=== PATIENT | male | born 1960 | race Hispanic/Latino ===

== ENCOUNTER 2020-08-07 14:09 | Inpatient (IN) | payer OTHER ==
--- NOTE | 2020-08-07 18:06 | Event Note ---
ED Screening Note ED Screening Note: language line used for macedonian interpretation went to a clinic to get COVID test and they advised for him to be evaluated in the ED, did not get to have the test performed +cough no appetite +SOB +diarrhea has had symptoms for 5 days no vomiting PMHx none allergy: none non smoker This initial assessment/diagnostic orders/clinical plan/treatment(s) is/are subject to change based on patients health status, clinical progression and re- assessment by fellow clinical providers in the ED. Further treatment and workup at subsequent clinical providers discretion. Patient/guardian urged not to elope from the ED as their condition may be serious if not clinically assessed and managed. Initial orders include: labs, CXR
--- NOTE | 2020-08-07 18:36 | XRay Report ---
CHEST 2 VIEWS INDICATION / CLINICAL INFORMATION: cough, chest pain, SOB. COMPARISON: None available. FINDINGS: SUPPORT DEVICES: None. HEART / MEDIASTINUM: No significant abnormality. LUNGS / PLEURA: There are generalized bilateral airspace opacities. No significant pleural effusion. No pneumothorax. ADDITIONAL FINDINGS: No significant additional findings. IMPRESSION: Bilateral airspace opacities are most concerning for pneumonia in the setting of cough and shortness of breath. Pulmonary edema is also a consideration. Continued radiographic follow-up to resolution is recommended. Signer Name: Petar Gonzalez MD Signed: 08/07/2020 6:32 PM Workstation Name: [id number]
[2020-08-07 18:51] LABS: Basophils % (Auto) 0.2 % (0.0-1.8); Eosinophils # (Auto) 0.1 K/mm3 (0.0-0.4); Eosinophils % (Auto) 0.7 % (0.0-4.3); Hematocrit 50.1 % (35.5-45.6); Hemoglobin 16.6 gm/dl (11.8-15.2); Lymphocytes # (Auto) 1.4 K/mm3 (1.2-5.4); Lymphocytes % (Auto) 17.5 % (13.4-35.0); Mean Corpuscular HGB Conc 33 % (32-34); Mean Corpuscular Volume 96 fl (84-94); Monocytes # (Auto) 0.9 K/mm3 (0.0-0.8); Monocytes % (Auto) 11.8 % (0.0-7.3); Platelet Count 437 K/mm3 (140-440); Red Blood Count 5.22 M/mm3 (3.65-5.03); Red Cell Distribution Width 12.9 % (13.2-15.2)
[2020-08-07 19:29] LABS: Alanine Aminotransferase 241 units/L (7-56); Blood Urea Nitrogen 11 mg/dL (9-20); Calcium 9.1 mg/dL (8.4-10.2); Hemolysis Index 40
[2020-08-07 19:33] LABS: BUN/Creatinine Ratio 18
--- NOTE | 2020-08-07 22:03 | Emergency Department Report ---
ED Shortness of Breath HPI - General Chief Complaint: Chest Pain Stated Complaint: CHEST PAIN/LILA Time Seen by Provider: 08/07/20 18:03 Source: patient Mode of arrival: Ambulatory Limitations: Language Barrier - History of Present Illness Initial Comments: 59-year-old male presents emerged department complaining of a 5-day history of cough shortness of breath associated with chest pain which worsens on exertion and has scant mucus production. Initially seen in urgent care advised to come to emergency department for evaluation and treatment options at the responsibility for Covct. Also been expressing diarrhea and abdominal pressure pain he reports no hematuria or dysuria no hematemesis no hematochezia no rashes noted. -: Gradual Severity: mild Consistency: constant Worsens With: nothing - Related Data Allergies Allergy/AdvReac Type Severity Reaction Status Date / Time No Known Allergies Allergy Unverified 08/07/20 17:31 ED Review of Systems ROS: Stated complaint: CHEST PAIN/LILA Other details as noted in HPI ED Past Medical Hx - Past Medical History Previous Medical History?: No - Surgical History Past Surgical History?: No ED Physical Exam - General Limitations: Language Barrier General appearance: alert, in no apparent distress - Head Head exam: Present: atraumatic, normocephalic - Eye Eye exam: Present: normal appearance - ENT ENT exam: Present: normal exam, normal orophraynx, mucous membranes moist - Neck Neck exam: Present: normal inspection - Respiratory Respiratory exam: Present: normal lung sounds bilaterally, decreased breath sounds. Absent: respiratory distress - Cardiovascular Cardiovascular Exam: Present: regular rate, normal rhythm. Absent: systolic murmur, diastolic murmur, rubs, gallop - GI/Abdominal GI/Abdominal exam: Present: soft, normal bowel sounds - Rectal Rectal exam: Present: deferred - Extremities Exam Extremities exam: Present: normal inspection - Back Exam Back exam: Present: normal inspection - Neurological Exam Neurological exam: Present: alert, oriented X3 - Psychiatric Psychiatric exam: Present: normal affect, normal mood - Skin Skin exam: Present: warm, dry, intact, normal color. Absent: rash ED Course Vital Signs 08/07/20 17:46 Temperature 98.2 F Pulse Rate 66 Respiratory 18 Rate Blood Pressure 124/73 [Right] O2 Sat by Pulse 94 Oximetry ED Medical Decision Making - Lab Data Result diagrams: 08/07/20 18:28 08/07/20 18:28 - EKG Data EKG shows normal: sinus rhythm Rate: normal - Radiology Data Radiology results: report reviewed [facility] [address] [place] [address] XRay Report Signed Patient: LAURYN AQUINO MR#: [id number] : 1960 Acct:[id number] Age/Sex: 59 / M ADM Date: 08/07/20 Loc: ED Attending Dr: Ordering Physician: LEONARDO MORRIS Date of Service: 08/07/20 Procedure(s): XR chest routine 2V Accession Number(s): [id number] cc: LEONARDO MORRIS Fluoro Time In Minutes: CHEST 2 VIEWS INDICATION / CLINICAL INFORMATION: cough, chest pain, SOB. COMPARISON: None available. FINDINGS: SUPPORT DEVICES: None. HEART / MEDIASTINUM: No significant abnormality. LUNGS / PLEURA: There are generalized bilateral airspace opacities. No significant pleural effusion. No pneumothorax. ADDITIONAL FINDINGS: No significant additional findings. IMPRESSION: Bilateral airspace opacities are most concerning for pneumonia in the setting of cough and shortness of breath. Pulmonary edema is also a consideration. Continued radiographic follow-up to resolution is recommended. Signer Name: Petar Gonzalez MD Signed: 08/07/2020 6:32 PM Workstation Name: [id number] Transcribed By: FRANK Dictated By: Petar Gonzalez MD Electronically Authenticated By: Petar Gonzalez MD Signed Date/Time: 08/07/201831 DD/ 30 TD/TT: - Medical Decision Making 59-year-old male resents emerged department complaining of chest pain shortness of breath for the last 5 days which is been progressively worsening bleed have COVID-19. He was found to have bilateral pneumonia with likely evolving CHF and desaturation with ambulation This patient presents to the emergency department with fever and lower respiratory symptoms concerning for viral syndrome including flu and COVID-19. Patient has suspicion and is for COVID-19 infection. Differential diagnosis includes other viral causes of lower respiratory symptoms, pneumonia, asthma, bronchitis. Patient is well-appearing with acceptable vitals, lacks comorbidities admission and a reassuring physical examination and is safe to be discharged home nasal swab for COVID testing is recommended. Provide strict return precautions and instructions on self isolation/quarantine and anticipatory guidance. Critical care attestation.: If time is entered above; I have spent that time in minutes in the direct care of this critically ill patient, excluding procedure time. ED Disposition Clinical Impression: Pneumonia, Suspected 2019 novel coronavirus infection Disposition: OP ADMIT IP TO THIS HOSP Is pt being admited?: Yes Does the pt Need Aspirin: No Condition: Stable Instructions: Bacterial Pneumonia (ED) Referrals: PRIMARY CARE, [Primary Care Provider] - 3-5 Days
[2020-08-07] MEDS ORDERED: methylPREDNISolone Sod Suc 500 MG in SODIUM CHLORIDE 0.9% 100 ML IV ONE (22:06)
[2020-08-07] MEDS ORDERED: AZITHROMYCIN 500 MG in SODIUM CHLORIDE 0.9% 250ML 250 ML IV ONE (22:06)
[2020-08-07] MEDS ORDERED: cefTRIAXone/NS 1 GM/50 ML 1 GM/50 ML BAG IV ONE ×2 (22:06→23:32)
[2020-08-07] MEDS ORDERED: dexAMETHasone 4 MG/ML VIAL IV ONE (22:15)
[2020-08-07] MEDS ORDERED: MAGNESIUM HYDROXIDE (MOM) ORAL LIQD UDC PO PRN (22:29)
[2020-08-07] MEDS ORDERED: ONDANSETRON 4 MG/2 ML INJ IV PRN (22:29)
[2020-08-07] MEDS ORDERED: ACETAMINOPHEN 325 MG TAB PO PRN (22:29)
--- NOTE | 2020-08-07 22:41 | History and Physical Report ---
History of Present Illness Date of examination: 08/07/20 Date of admission: 08/07/2020 Chief complaint: Cough Shorness of Breath History of present illness: Patient is a 59-year-old male with no significant past medical history presenting to the emergency room today complaining of shortness of breath which has been ongoing for about 5 days. He has also had some cough productive of some scanty whitish sputum. He has had some associated mild chest discomfort when he coughs. Patient denies any fever or chills, no nausea or vomiting but has had a bout of diarrhea. He denies any hematuria or dysuria and denies any bright red blood per rectum. Patient denies any sick contacts and no recent travel. Denies any contact with anyone with COVID-19. Work-up in the emergency room reveals multifocal infiltrates in both lung haynes. Labs reveals elevated liver enzymes. Patient commenced on empiric IV antibiotics for pneumonia with possible Covid. Past History Past Medical History: No medical history Past Surgical History: No surgical history Family history: no significant family history Medications and Allergies Allergies Allergy/AdvReac Type Severity Reaction Status Date / Time No Known Allergies Allergy Unverified 08/07/20 17:31 Active Meds: Active Medications Acetaminophen (Tylenol) 650 mg PO Q4H PRN PRN Reason: Pain MILD(1-3)/Fever >100.5/AVILES Enoxaparin Sodium (Enoxaparin) 40 mg SUB-Q QDAY@2200 ANNALISE; Protocol Azithromycin 500 mg/ Sodium (Chloride) 250 mls @ 250 mls/hr IV ONCE ONE; Protocol Stop: 08/07/20 23:05 Ceftriaxone Sodium (Rocephin/Ns 2 Gm/100 Ml) 2 gm in 100 mls @ 200 mls/hr IV Q24HR ANNALISE; Protocol Azithromycin 500 mg/ Sodium (Chloride) 250 mls @ 250 mls/hr IV Q24HR ANNALISE; Protocol Magnesium Hydroxide (Milk Of Magnesia) 30 ml PO Q4H PRN PRN Reason: Constipation Ondansetron HCl (Zofran) 4 mg IV Q8H PRN PRN Reason: Nausea And Vomiting Sodium Chloride (Sodium Chloride Flush Syringe 10 Ml) 10 ml IV BID ANNALISE Sodium Chloride (Sodium Chloride Flush Syringe 10 Ml) 10 ml IV PRN PRN PRN Reason: LINE FLUSH Review of Systems Constitutional: no fever, no chills Ears, nose, mouth and throat: no nasal congestion, no sore throat Cardiovascular: chest pain, no palpitations Respiratory: cough, cough with sputum, shortness of breath, no wheezing Gastrointestinal: no abdominal pain, no nausea, no vomiting, no diarrhea Genitourinary Male: no dysuria, no hematuria, no flank pain Musculoskeletal: no neck pain, no low back pain Integumentary: no rash, no pruritis Neurological: no confusion Psychiatric: no anxiety, no depression Exam - Constitutional Vitals: Temp Pulse Resp BP Pulse Ox 98.2 F 66 18 124/73 94 08/07/20 17:46 08/07/20 17:46 08/07/20 17:46 08/07/20 17:46 08/07/20 17:46 General appearance: Present: no acute distress, well-nourished - EENT Eyes: Present: PERRL, EOM intact. Absent: scleral icterus ENT: hearing intact, clear oral mucosa, dentition normal - Neck Neck: Present: supple, normal ROM - Respiratory Respiratory effort: normal Respiratory: bilateral: rales - Cardiovascular Rhythm: regular Heart Sounds: Present: S1 & S2. Absent: gallop, systolic murmur, diastolic murmur, rub - Extremities Extremities: no ischemia, pulses intact, pulses symmetrical, No edema, Full ROM Peripheral Pulses: within normal limits - Abdominal General gastrointestinal: Present: soft, non-tender, non-distended, normal bowel sounds. Absent: mass - Integumentary Integumentary: Present: clear, warm, dry - Musculoskeletal Musculoskeletal: strength equal bilaterally - Psychiatric Psychiatric: appropriate mood/affect, intact judgment & insight, memory intact, cooperative - Neurologic Neurologic: CNII-XII intact, no focal deficits, moves all extremities Results - Labs CBC & Chem 7: 08/08/20 04:34 08/07/20 22:16 Labs: Abnormal lab results 08/07/20 08/07/20 Range/Units 18:28 18:28 RBC 5.22 H (3.65-5.03) M/mm3 Hgb 16.6 H (11.8-15.2) gm/dl Hct 50.1 H (35.5-45.6) % MCV 96 H (84-94) fl RDW 12.9 L (13.2-15.2) % [place] % (Auto) 11.8 H (0.0-7.3) % [place] # (Auto) 0.9 H (0.0-0.8) K/mm3 Sodium 135 L (137-145) mmol/L Carbon Dioxide 20 L (22-30) mmol/L Creatinine 0.6 L (0.8-1.3) mg/dL Glucose 133 H (75-100) mg/dL AST 147 H (5-40) units/L ALT 241 H (7-56) units/L Albumin 3.0 L (3.9-5) g/dL Assessment and Plan - Patient Problems (1) Pneumonia Current Visit: Yes Status: Acute Plan to address problem: Patient started on empiric IV antibiotics. Will await culture results. (2) Suspected 2019 novel coronavirus infection Current Visit: Yes Status: Acute Plan to address problem: Patient placed on isolation precautions. Will await COVID-19 testing. Consult placed to infectious disease for evaluation. (3) Elevated liver enzymes Current Visit: Yes Status: Acute Plan to address problem: Etiology unclear. Will check hepatitis profile. Will place consult to [facility] stroenterology for evaluation. (4) DVT prophylaxis Current Visit: Yes Status: Acute Plan to address problem: Patient placed on subcutaneous Lovenox. (5) Full code status Current Visit: Yes Status: Acute
[2020-08-07] MEDS ORDERED: dexAMETHasone 4 MG/ML VIAL ONE (23:33)
[2020-08-07 23:53] LABS: Hepatitis B Surface Antigen Non-Reactive (Negative); Hepatitis C Virus Antibody Non-Reactive (NonReactive)
[2020-08-08 01:30] LABS: C-Reactive Protein 7.9 mg/dL (0.00-1.30)
[2020-08-08 05:28] LABS: Basophils % (Auto) 0.2 % (0.0-1.8); Eosinophils % (Auto) 0.1 % (0.0-4.3); Hematocrit 45.7 % (35.5-45.6); Hemoglobin 15.7 gm/dl (11.8-15.2); Lymphocytes # (Auto) 0.7 K/mm3 (1.2-5.4); Mean Corpuscular HGB Conc 34 % (32-34); Mean Corpuscular Volume 94 fl (84-94); Monocytes # (Auto) 0.4 K/mm3 (0.0-0.8); Monocytes % (Auto) 6.9 % (0.0-7.3); Platelet Count 442 K/mm3 (140-440); Red Blood Count 4.88 M/mm3 (3.65-5.03); Red Cell Distribution Width 12.6 % (13.2-15.2)
[2020-08-08 06:10] LABS: Bilirubin,Direct 0.2 mg/dL (0-0.2)
[2020-08-08 06:11] LABS: BUN/Creatinine Ratio 15; Blood Urea Nitrogen 12 mg/dL (9-20); Calcium 8.9 mg/dL (8.4-10.2); Hemolysis Index 4
[2020-08-08 06:16] LABS: INR 1.09 (0.87-1.13)
[2020-08-08] MEDS ORDERED: AZITHROMYCIN 500 MG in SODIUM CHLORIDE 0.9% 250ML 250 ML IV SCH (10:00)
--- NOTE | 2020-08-08 12:28 | Consultation ---
History of Present Illness - Reason for Consult Consult date: 08/08/20 - History of Present Illness 59-year-old male no past medical history admitted to the hospital complaining of shortness of breath he complains of associated cough he notes began approximately 5 days prior to admission and has become worse since then. Is a mild chest COVID-19 denies any swelling diarrhea. Does any COVID-19 contacts. Covid testing pending. Afebrile with a white count of 5.4. Elevated inflammatory markers. Elevated liver enzymes. Covid testing pending no cultures were reviewed. Currently receiving ceftriaxone and azithromycin. Imaging personally reviewed: Chest x-ray: Bilateral airspace opacities. Review of Systems: Bold if positive, otherwise negative General: fevers, chills, rigors HEENT: visual disturbance, diplopia, eye pain Respiratory: cough, sputum, hemoptysis, shortness of breath Cardiovascular: chest pain, syncope Gastrointestinal: nausea, vomiting, diarrhea, abdominal pain Genitourinary: dysuria, hematuria, flank pain Musculoskeletal: neck pain, back pain, joint pain, edema Neurologic: headaches, seizures Hematologic: easy bruising or bleeding Endocrine: night sweats, acute weight loss Skin: rash, jaundice, redness Psychiatric: suicidal, homicidal ideation Past History Past Medical History: No medical history Past Surgical History: No surgical history Family history: no significant family history Medications and Allergies Allergies Allergy/AdvReac Type Severity Reaction Status Date / Time No Known Allergies Allergy Unverified 08/07/20 17:31 Active Meds: Active Medications Acetaminophen (Tylenol) 650 mg PO Q4H PRN PRN Reason: Pain MILD(1-3)/Fever >100.5/AVILES Azithromycin (Zithromax) 500 mg PO QHS [facility] Stop: 08/11/20 22:01 Enoxaparin Sodium (Enoxaparin) 40 mg SUB-Q QDAY@2200 ANNALISE; Protocol Ceftriaxone Sodium (Rocephin/Ns 2 Gm/100 Ml) 2 gm in 100 mls @ 200 mls/hr IV QHS [facility]; Protocol Magnesium Hydroxide (Milk Of Magnesia) 30 ml PO Q4H PRN PRN Reason: Constipation Ondansetron HCl (Zofran) 4 mg IV Q8H PRN PRN Reason: Nausea And Vomiting Sodium Chloride (Sodium Chloride Flush Syringe 10 Ml) 10 ml IV BID ANNALISE Last Admin: 08/08/20 12:04 Dose: 10 ml Documented by: Sodium Chloride (Sodium Chloride Flush Syringe 10 Ml) 10 ml IV PRN PRN PRN Reason: LINE FLUSH Physical Examination - Physical Exam Narrative exam: Physical exam deferred due to PPE conservation strategy. Please refer to primary team's note. - Constitutional Vitals: Vital Signs Temp Pulse Resp BP Pulse Ox 97.5 F L 69 28 H 116/65 96 08/08/20 05:00 08/08/20 05:00 08/08/20 05:00 08/08/20 05:00 08/08/20 05:00 Temperature -Last 24 Hours Temperature 97.5 F Temperature 98.4 F Temperature 98.2 F Results - Labs CBC & Chem 7: 08/08/20 04:34 08/08/20 04:34 Labs: Abnormal lab results 08/07/20 08/07/20 08/07/20 Range/Units 18:28 18:28 22:16 RBC 5.22 H (3.65-5.03) M/mm3 Hgb 16.6 H (11.8-15.2) gm/dl Hct 50.1 H (35.5-45.6) % MCV 96 H (84-94) fl RDW 12.9 L (13.2-15.2) % Plt Count (140-440) K/mm3 Lymph % (Auto) (13.4-35.0) % [place] % (Auto) 11.8 H (0.0-7.3) % Lymph # (Auto) (1.2-5.4) K/mm3 [place] # (Auto) 0.9 H (0.0-0.8) K/mm3 Seg Neutrophils % (40.0-70.0) % D-Dimer 2651.46 H (0-234) ng/mlDDU Sodium 135 L (137-145) mmol/L Carbon Dioxide 20 L (22-30) mmol/L Creatinine 0.6 L (0.8-1.3) mg/dL Glucose 133 H (75-100) mg/dL Ferritin (30.0-300.0) ng/mL AST 147 H (5-40) units/L ALT 241 H (7-56) units/L Lactate Dehydrogenase (91-180) units/L C-Reactive Protein (0.00-1.30) mg/dL Albumin 3.0 L (3.9-5) g/dL 08/07/20 08/07/20 08/08/20 Range/Units 22:16 22:16 04:34 RBC (3.65-5.03) M/mm3 Hgb 15.7 H (11.8-15.2) gm/dl Hct 45.7 H (35.5-45.6) % MCV (84-94) fl RDW 12.6 L (13.2-15.2) % Plt Count 442 H (140-440) K/mm3 Lymph % (Auto) 13.0 L (13.4-35.0) % [place] % (Auto) (0.0-7.3) % Lymph # (Auto) 0.7 L (1.2-5.4) K/mm3 [place] # (Auto) (0.0-0.8) K/mm3 Seg Neutrophils % 79.8 H (40.0-70.0) % D-Dimer (0-234) ng/mlDDU Sodium (137-145) mmol/L Carbon Dioxide (22-30) mmol/L Creatinine (0.8-1.3) mg/dL Glucose 134 H (75-100) mg/dL Ferritin 820.0 H (30.0-300.0) ng/mL AST (5-40) units/L ALT (7-56) units/L Lactate Dehydrogenase 440 H (91-180) units/L C-Reactive Protein 7.90 H (0.00-1.30) mg/dL Albumin (3.9-5) g/dL 08/08/20 08/08/20 Range/Units 04:34 04:34 RBC (3.65-5.03) M/mm3 Hgb (11.8-15.2) gm/dl Hct (35.5-45.6) % MCV (84-94) fl RDW (13.2-15.2) % Plt Count (140-440) K/mm3 Lymph % (Auto) (13.4-35.0) % [place] % (Auto) (0.0-7.3) % Lymph # (Auto) (1.2-5.4) K/mm3 [place] # (Auto) (0.0-0.8) K/mm3 Seg Neutrophils % (40.0-70.0) % D-Dimer (0-234) ng/mlDDU Sodium 136 L (137-145) mmol/L Carbon Dioxide (22-30) mmol/L Creatinine (0.8-1.3) mg/dL Glucose 161 H (75-100) mg/dL Ferritin (30.0-300.0) ng/mL AST 120 H (5-40) units/L ALT 209 H (7-56) units/L Lactate Dehydrogenase (91-180) units/L C-Reactive Protein (0.00-1.30) mg/dL Albumin 3.0 L (3.9-5) g/dL Assessment and Plan Cultures: None A/P: 59-year-old man no known past medical history admitted with pneumonia, concern for COVID-19 #COVID-19 PUI: Obtain and follow-up testing. Chest x-ray with diffuse bilateral lateral traits #Elevated liver enzymes: Likely secondary to COVID-19, pending confirmation testing. #Bilateral pneumonia Recs: -Continue ceftriaxone 2 gm IV qday and azithromycin 500 mg PO qday, if procalcitonin <0.25 ng/mL will stop antibiotics -We will start remdesivir if hypoxic and COVID-19 positive -Follow liver enzymes -Further recommendations following Covid test results. Thank you for the consult, we will continue to follow. MD Iliana Matos [facility] ([facility] O: [phone] F: [phone]
--- NOTE | 2020-08-08 14:08 | Progress Note ---
Assessment and Plan --Bilateral pneumonia Patient started on empiric IV antibiotics. Will await culture results. -- Suspected 2019 novel coronavirus infection Patient placed on isolation precautions. Will await COVID-19 testing. Consult placed to infectious disease for evaluation. -- Elevated liver enzymes Etiology unclear. Will check hepatitis profile. Will place consult to gastroenterology for evaluation. -- DVT prophylaxis Patient placed on subcutaneous Lovenox. -- Full code status 08/08: Follow inflammatory markers, continue IV antibiotics. Pending COVID-19 tests, if positive will start remdesivir. Chest x-ray suggestive of Bilateral airspace opacities are most concerning for pneumonia Subjective Date of service: 08/08/20 Interval history: Patient seen and examined. Medical records and medication list reviewed. No acute event overnight noted by the RN. Patient denies any chest pain or difficulty breathing. Patient is tolerating diet. Discussed plan of care at bedside with patient. Objective - Exam Narrative Exam: GENERAL: well-developed and well-nourished male lying on bed appeared to be in no discomfort. HEENT: Normocephalic. Atraumatic. No conjunctival congestion or icterus. Patient has moist mucous membranes. NECK: Supple. Trachea midline. CHEST/LUNGS: Coarse breath sound auscultated bilaterally, breathing nonlabored. HEART/CARDIOVASCULAR: Regular in rate and rhythm. S1 and S2 positive. ABDOMEN: Abdomen is soft, nontender. Patient has normal bowel sounds. SKIN: There is no rash. Warm and dry. NEURO: No focal motor deficit. Follows command. MUSCULOSKELETAL: No joint effusion or tenderness. EXTRIMITY: No edema, no cyanosis or clubbing. PSYCH: Cooperative. - Constitutional Vitals: Vital Signs - 12hr 08/08/20 08/08/20 08/08/20 04:05 05:00 11:28 Temperature 98.4 F 97.5 F L 98.6 F Pulse Rate 62 69 74 Respiratory 16 28 H 18 Rate Blood Pressure 116/65 125/74 Blood Pressure 118/70 [Right] O2 Sat by Pulse 99 96 93 Oximetry - Labs CBC & Chem 7: 08/08/20 04:34 08/08/20 04:34 Labs: Abnormal lab results 08/07/20 08/07/20 08/07/20 Range/Units 18:28 18:28 22:16 RBC 5.22 H (3.65-5.03) M/mm3 Hgb 16.6 H (11.8-15.2) gm/dl Hct 50.1 H (35.5-45.6) % MCV 96 H (84-94) fl RDW 12.9 L (13.2-15.2) % Plt Count (140-440) K/mm3 Lymph % (Auto) (13.4-35.0) % [place] % (Auto) 11.8 H (0.0-7.3) % Lymph # (Auto) (1.2-5.4) K/mm3 [place] # (Auto) 0.9 H (0.0-0.8) K/mm3 Seg Neutrophils % (40.0-70.0) % D-Dimer 2651.46 H (0-234) ng/mlDDU Sodium 135 L (137-145) mmol/L Carbon Dioxide 20 L (22-30) mmol/L Creatinine 0.6 L (0.8-1.3) mg/dL Glucose 133 H (75-100) mg/dL Ferritin (30.0-300.0) ng/mL AST 147 H (5-40) units/L ALT 241 H (7-56) units/L Lactate Dehydrogenase (91-180) units/L C-Reactive Protein (0.00-1.30) mg/dL Albumin 3.0 L (3.9-5) g/dL 08/07/20 08/07/20 08/08/20 Range/Units 22:16 22:16 04:34 RBC (3.65-5.03) M/mm3 Hgb 15.7 H (11.8-15.2) gm/dl Hct 45.7 H (35.5-45.6) % MCV (84-94) fl RDW 12.6 L (13.2-15.2) % Plt Count 442 H (140-440) K/mm3 Lymph % (Auto) 13.0 L (13.4-35.0) % [place] % (Auto) (0.0-7.3) % Lymph # (Auto) 0.7 L (1.2-5.4) K/mm3 [place] # (Auto) (0.0-0.8) K/mm3 Seg Neutrophils % 79.8 H (40.0-70.0) % D-Dimer (0-234) ng/mlDDU Sodium (137-145) mmol/L Carbon Dioxide (22-30) mmol/L Creatinine (0.8-1.3) mg/dL Glucose 134 H (75-100) mg/dL Ferritin 820.0 H (30.0-300.0) ng/mL AST (5-40) units/L ALT (7-56) units/L Lactate Dehydrogenase 440 H (91-180) units/L C-Reactive Protein 7.90 H (0.00-1.30) mg/dL Albumin (3.9-5) g/dL 08/08/20 08/08/20 Range/Units 04:34 04:34 RBC (3.65-5.03) M/mm3 Hgb (11.8-15.2) gm/dl Hct (35.5-45.6) % MCV (84-94) fl RDW (13.2-15.2) % Plt Count (140-440) K/mm3 Lymph % (Auto) (13.4-35.0) % [place] % (Auto) (0.0-7.3) % Lymph # (Auto) (1.2-5.4) K/mm3 [place] # (Auto) (0.0-0.8) K/mm3 Seg Neutrophils % (40.0-70.0) % D-Dimer (0-234) ng/mlDDU Sodium 136 L (137-145) mmol/L Carbon Dioxide (22-30) mmol/L Creatinine (0.8-1.3) mg/dL Glucose 161 H (75-100) mg/dL Ferritin (30.0-300.0) ng/mL AST 120 H (5-40) units/L ALT 209 H (7-56) units/L Lactate Dehydrogenase (91-180) units/L C-Reactive Protein (0.00-1.30) mg/dL Albumin 3.0 L (3.9-5) g/dL
[2020-08-08] MEDS ORDERED: REMDESIVIR 100 MG VIAL IV ONE (18:00)
[2020-08-08] MEDS ORDERED: REMDESIVIR 200 MG in SODIUM CHLORIDE 0.9% 250ML 250 ML IV ONE (18:00)
[2020-08-08] MEDS: SODIUM CHLORIDE 0.9% 50 ML IV SCH (19:00)
[2020-08-08] MEDS: ENOXAPARIN 40 MG/0.4 ML INJ SUB-Q SCH (21:26)
[2020-08-08] MEDS ORDERED: cefTRIAXone/NS 2 GM/100 ML 2 GM/100 ML BAG IV SCH (22:00)
[2020-08-08] MEDS ORDERED: AZITHROMYCIN 250 MG TAB PO SCH (22:00)
[2020-08-09] MEDS: DEXAMETHASONE 2 MG TAB PO SCH (11:45)
--- NOTE | 2020-08-09 13:37 | Gastroenterology Consultation ---
History of Present Illness - Reason for Consult Consult date: 08/09/20 elevated liver enzymes Requesting physician: ASCENCION JETER - History of Present Illness The patient is a 59 yo male who presented with few days of progressive sob and cough. Patient diagnosed with COVID-19; found to have elevated liver enzymes on admission. no known h/o liver disease, denies abd pain. viral hep serologies negative. Past History Past Medical History: No medical history Past Surgical History: No surgical history Family history: no significant family history Medications and Allergies Allergies Allergy/AdvReac Type Severity Reaction Status Date / Time No Known Allergies Allergy Unverified 08/07/20 17:31 Active Meds: Active Medications Acetaminophen (Tylenol) 650 mg PO Q4H PRN PRN Reason: Pain MILD(1-3)/Fever >100.5/AVILES Dexamethasone (Decadron) 6 mg PO Q24HR [facility] Last Admin: 08/09/20 11:45 Dose: 6 mg Documented by: Enoxaparin Sodium (Enoxaparin) 40 mg SUB-Q QDAY@2200 ANNALISE; Protocol Last Admin: 08/08/20 21:26 Dose: 40 mg Documented by: REMDESIVIR 100 mg/ Sodium (Chloride) 250 mls @ 500 mls/hr IV Q24HR@2100 ANNALISE Stop: 08/12/20 21:29 Sodium Chloride (Nacl 0.9%) 50 mls @ 100 mls/hr IV Q24H [facility] Last Admin: 08/08/20 19:00 Dose: 100 mls/hr Documented by: Magnesium Hydroxide (Milk Of Magnesia) 30 ml PO Q4H PRN PRN Reason: Constipation Ondansetron HCl (Zofran) 4 mg IV Q8H PRN PRN Reason: Nausea And Vomiting Sodium Chloride (Sodium Chloride Flush Syringe 10 Ml) 10 ml IV BID [facility] Last Admin: 08/09/20 11:46 Dose: 10 ml Documented by: Sodium Chloride (Sodium Chloride Flush Syringe 10 Ml) 10 ml IV PRN PRN PRN Reason: LINE FLUSH Reviewed/updated patient's home and current medications Review of Systems - Review of Systems All systems: negative (per HPI) Exam - Constitutional Vital Signs: Temp Pulse Resp BP Pulse Ox 98.5 F 70 20 130/84 97 08/09/20 04:05 08/09/20 04:05 08/09/20 04:05 08/09/20 04:05 08/09/20 04:05 General appearance: no acute distress - EENT ENT: hearing intact - Respiratory Respiratory effort: normal Respiratory: bilateral: CTA - Cardiovascular Rhythm: regular Heart Sounds: Present: S1 & S2 - Gastrointestinal General gastrointestinal: Present: soft, non-tender, non-distended - Neurologic Neurological: alert and oriented x3 - Psychiatric Psychiatric: appropriate mood/affect - Labs CBC & Chem 7: 08/08/20 04:34 08/08/20 04:34 Lab Results: Laboratory Results - last 24 hr 08/08/20 Unknown Coronavirus (PCR) Positive A Assessment and Plan Abnormal liver enzymes - hepatocellular elevation, improved on repeat labs. unlikely with obstructive process given pattern of elevation. suspect due to COVID. would trend labs/monitor from gi stand point. if labs increase, obtain RUQ US, otherwise follow-up in GI clinic in 3-4 weeks for repeat labs and further work-up as needed if remains elevated. will sign off, please call as needed.
--- NOTE | 2020-08-09 16:41 | Progress Note ---
Assessment and Plan Cultures: None A/P: 59-year-old man no known past medical history admitted with pneumonia, concern for COVID-19 #COVID-19 pneumonia #Elevated liver enzymes: Likely secondary to COVID-19 #Bilateral pneumonia Recs: -Stopped antibiotics due to normal procalcitonin -Hold on remdesivir for now as patient does not appear to be hypoxic. Started requiring supplemental oxygen. -Follow liver enzymes Thank you for the consult, we will continue to follow. Michael Lares MD [facility], [place] ([facility] O: [phone] F: [phone] Subjective Date of service: 08/09/20 Interval history: Afebrile, normal white count. Covid positive. Objective - Exam Narrative Exam: Physical exam deferred due to PPE conservation strategy. Please refer to primary team's note. - Constitutional Vitals: Vital Signs Temp Pulse Resp BP Pulse Ox 97.7 F 71 22 117/76 95 08/09/20 11:54 08/09/20 11:54 08/09/20 11:54 08/09/20 11:54 08/09/20 11:54 Temperature -Last 24 Hours Temperature 97.7 F Temperature 98.5 F Temperature 98.3 F - Labs CBC & Chem 7: 08/08/20 04:34 08/08/20 04:34
--- NOTE | 2020-08-09 19:16 | Progress Note ---
Assessment and Plan --Bilateral pneumonia We will stop IV antibiotics. Patient is positive for Covid Will start on remdesivir IV -- novel coronavirus 2019 infection Patient placed on isolation precautions. +ve COVID-19 testing. Consult placed to infectious disease for evaluation. -- Elevated liver enzymes Etiology unclear. Negative hepatitis panel Likely due to COVID-19 infection -- DVT prophylaxis Patient placed on subcutaneous Lovenox. -- Full code status 08/08: Follow inflammatory markers, continue IV antibiotics. Pending COVID-19 tests, if positive will start remdesivir. Chest x-ray suggestive of Bilateral airspace opacities are most concerning for pneumonia 08/09: Patient is positive for COVID-19, will start on dexamethasone and remdesivir for now. Will follow ID recommendation. Subjective Date of service: 08/09/20 Interval history: Patient seen and examined. Medical records and medication list reviewed. No acute event overnight noted by the RN. Patient denies any chest pain or difficulty breathing. Patient is tolerating diet. Discussed plan of care at bedside with patient. Objective - Exam Narrative Exam: GENERAL: well-developed and well-nourished male lying on bed appeared to be in no discomfort. HEENT: Normocephalic. Atraumatic. No conjunctival congestion or icterus. Patient has moist mucous membranes. NECK: Supple. Trachea midline. CHEST/LUNGS: Coarse breath sound auscultated bilaterally, breathing nonlabored. HEART/CARDIOVASCULAR: Regular in rate and rhythm. S1 and S2 positive. ABDOMEN: Abdomen is soft, nontender. Patient has normal bowel sounds. SKIN: There is no rash. Warm and dry. NEURO: No focal motor deficit. Follows command. MUSCULOSKELETAL: No joint effusion or tenderness. EXTRIMITY: No edema, no cyanosis or clubbing. PSYCH: Cooperative. - Constitutional Vitals: Vital Signs - 12hr 08/09/20 11:54 Temperature 97.7 F Pulse Rate 71 Respiratory 22 Rate Blood Pressure 117/76 O2 Sat by Pulse 95 Oximetry - Labs CBC & Chem 7: 08/08/20 04:34 08/08/20 04:34
[2020-08-09] MEDS ORDERED: REMDESIVIR 100 MG in SODIUM CHLORIDE 0.9% 250ML 250 ML IV SCH (21:00)
[2020-08-09] MEDS: ENOXAPARIN 40 MG/0.4 ML INJ SUB-Q SCH (21:53)
[2020-08-09] MEDS: SODIUM CHLORIDE 0.9% 50 ML IV SCH (21:54)
[2020-08-10 07:11] LABS: Alanine Aminotransferase 169 units/L (7-56)
[2020-08-10 08:04] LABS: Bilirubin,Direct < 0.2 mg/dL (0-0.2)
[2020-08-10] MEDS: DEXAMETHASONE 2 MG TAB PO SCH (10:50)
[2020-08-10 11:34] LABS: C-Reactive Protein 1.2 mg/dL (0.00-1.30)
--- NOTE | 2020-08-10 13:09 | Progress Note ---
Assessment and Plan Cultures: None A/P: 59-year-old man no known past medical history admitted with pneumonia, concern for COVID-19 #COVID-19 pneumonia #Elevated liver enzymes: Likely secondary to COVID-19. Improving #Bilateral pneumonia Recs: -Stopped antibiotics due to normal procalcitonin -Hold on remdesivir for now as patient does not appear to be hypoxic. Start if requiring supplemental oxygen. -Follow liver enzymes Thank you for the consult, we will continue to follow. Michael Lares MD [facility] ([facility] O: [phone] F: [phone] Subjective Date of service: 08/10/20 Interval history: Afebrile, normal white count. Currently on room air. Objective - Exam Narrative Exam: Physical exam deferred due to PPE conservation strategy. Please refer to primary team's note. - Constitutional Vitals: Vital Signs Temp Pulse Resp BP Pulse Ox 98.2 F 70 20 126/83 97 08/10/20 04:59 08/10/20 04:59 08/10/20 04:59 08/10/20 04:59 08/10/20 04:59 Temperature -Last 24 Hours Temperature 98.2 F Temperature 98.2 F Temperature 98.4 F - Labs CBC & Chem 7: 08/08/20 04:34 08/08/20 04:34 Labs: Abnormal lab results 08/10/20 08/10/20 08/10/20 Range/Units 04:42 07:55 10:44 D-Dimer 1464.23 H (0-234) ng/mlDDU POC Glucose 119 H (70-105) mg/dL Ferritin (30.0-300.0) ng/mL AST 66 H (5-40) units/L ALT 169 H (7-56) units/L Lactate Dehydrogenase (91-180) units/L Albumin 3.0 L (3.9-5) g/dL 08/10/20 08/10/20 08/10/20 Range/Units 10:44 10:44 11:29 D-Dimer (0-234) ng/mlDDU POC Glucose 147 H (70-105) mg/dL Ferritin 585.2 H (30.0-300.0) ng/mL AST (5-40) units/L ALT (7-56) units/L Lactate Dehydrogenase 245 H (91-180) units/L Albumin (3.9-5) g/dL
[2020-08-10 14:03] VITALS: BP 150/97
[2020-08-10] MEDS ORDERED: REMDESIVIR 100 MG in SODIUM CHLORIDE 0.9% 250ML 250 ML IV SCH ×2 (16:00→21:00)
--- NOTE | 2020-08-10 16:26 | Discharge Summary ---
Providers - Providers Date of Admission: 08/07/20 22:29 Date of discharge: 08/10/20 Attending physician: ASCENCION JETER 08/07/20 22:29 Consult to Physician [CONS] Routine Comment: Consulting Provider: ALISA FITZGERALD Physician Instructions: Reason For Exam: Elevated liver enzymes 08/07/20 22:33 Consult to Physician [CONS] Routine Comment: Consulting Provider: CORINE HALL Physician Instructions: Reason For Exam: Pneumonia R/O Covid 19 Primary care physician: AWARD CLERK Hospitalization Condition: Stable Pertinent studies: Chest x-ray Hospital course: Discharge diagnosis: --Bilateral pneumonia with COVID-19 -- novel coronavirus 2019 infection Treated 3 days with IV remdesivir Patient will also complete 10 days of dexamethasone -- Elevated liver enzymes Etiology unclear. Negative hepatitis panel Likely due to COVID-19 infection --Elevated D-dimer, Likely due to COVID-19 treat with Eliquis per COVID-19 protocol Disposition: TO HOME OR SELFCARE Time spent for discharge: 34 minutes Core Measure Documentation - Palliative Care Palliative Care/ Comfort Measures: Not Applicable - Core Measures Any of the following diagnoses?: none Exam - Physical Exam Narrative exam: GENERAL: well-developed and well-nourished male lying on bed appeared to be in no discomfort. HEENT: Normocephalic. Atraumatic. No conjunctival congestion or icterus. Patient has moist mucous membranes. NECK: Supple. Trachea midline. CHEST/LUNGS: Coarse breath sound auscultated bilaterally, breathing nonlabored. HEART/CARDIOVASCULAR: Regular in rate and rhythm. S1 and S2 positive. ABDOMEN: Abdomen is soft, nontender. Patient has normal bowel sounds. SKIN: There is no rash. Warm and dry. NEURO: No focal motor deficit. Follows command. MUSCULOSKELETAL: No joint effusion or tenderness. EXTRIMITY: No edema, no cyanosis or clubbing. PSYCH: Cooperative. - Constitutional Vitals: Temp Pulse Resp BP Pulse Ox 97.6 F 99 H 20 150/97 95 08/10/20 11:32 08/10/20 11:32 08/10/20 11:32 08/10/20 11:32 08/10/20 11:32 Plan Activity: advance as tolerated Weight Bearing Status: Weight Bear as Tolerated Diet: low fat, low salt Follow up with: PRIMARY CAREMD [Primary Care Provider] - 3-5 Days CORINE HALL MD [Staff Physician] - 7 Days Prescriptions: dexAMETHasone [Decadron] 6 mg PO Q24HR #7 tablet Apixaban [Eliquis] 5 mg PO Q12HR #14 tablet Albuterol Mdi (or & Nicu Only) [ProAir HFA Inhaler] 2 puff IH QID PRN #8.5 gram PRN Reason: Shortness Of Breath
[2020-08-10] MEDS ORDERED: SODIUM CHLORIDE 0.9% 50 ML IV SCH (21:00)
[2020-08-10] MEDS ORDERED: APIXABAN 5 MG TAB PO SCH (22:00)
== END 2020-08-10 20:20 | disposition home or self-care (01) | DRG 177 ==
LOC: ED 14:09 → 3A 22:29
PROVIDERS: ADMIT Internal Medicine Geriatric Medicine; ATTEND Internal Medicine
PROC: XW033E5 Introduction of Remdesivir Anti-infective into Peripheral Vein, Percutaneous Approach, New Technology Group 5 (ICD-10-PCS; principal; 2020-08-08)
DX: U07.1 COVID-19 (principal); J12.89 Other viral pneumonia; R74.8 Abnormal levels of other serum enzymes
CPT/HCPCS: 36415; 71046; 80048; 80053; 80074; 80076; 82728; 82947; 82962; 83615; 84145; 85025; 85379; 85610; 86140; 93005; 96365; 96367; 96375; G0378; J0456; J0696; J1100; J1650; J7050; J8540; U0003